=== PATIENT | female | born 1965 | race Caucasian/White ===

== ENCOUNTER → 2019-11-04 | Day surgery (SDC) | payer OTHER ==
[~2019-11-04] MED LIST: AMBIEN5 MG PO; BACITRACIN 50,000 UNIT VIAL ONE; BUPIVACAINE HCL 0.5% INJ 30 ML VIAL INJ ONE; CEFAZOLIN SOD 1 GM/NS 50ML 100 ML IV ONE; DEXAMETHASONE SOD PHOS INJ 4 MG/ML VIAL ONE; ETOMIDATE 2 MG/ML 10 ML INJ IV ONE; FENTANYL CITRATE/PF 100MCG/2 ML INJ ONE; HYDROCHLOROTHIA25 MG PO; KETOROLAC TROMETHAMINE 30 MG/ML VIAL ONE; LIDOCAINE HCL 2% LOCAL INJ 5 ML SDV VIAL INJ ONE; MIDAZOLAM HCL 2 MG/2 ML VIAL ONE; NEOSTIGMINE 1 MG/ML 10ML VIAL ONE; ONDANSETRON HCL INJ 2MG/ML 2ML 2 MG/ML VIAL ONE; PAXIL20 MG PO; POTASSIUM CHLO20 ME1 PO; PROPOFOL IV EMULSION 10 MG/ML 20 ML VIAL ONE; SEVOFLURANE INHAL SOLN 250 ML PEN BTL ONE
--- OUTSIDE RECORDS SUMMARY | 2019-11-04 06:59 | XMS REPORT | Summary of Care ---
Author Author [facility] Organization [facility] Address Unknown Phone Unavailable Care Team Providers Care Order Filler Name Role Phone PCP Unavailable Reason for Visit * Reason Comments Skin Check face and right shoulder Encounter Details Care Team Description Date Type Department Kiah Love MD [address] [facility] [address] [place] [address] [phone] Skin Check (face and right shoulder) 05/01/2019 Office Visit [facility] Dermatology [address] [facility] [place] [id number] Allergies No Known Allergiesdocumented as of this encounter (statuses as of 05/01/2019) Medications End Date Status Medication Sig Dispensed Refills Start Date Active hydrochlorothiazide TAKE 1 TABLET 2 (HYDRODIURIL) 25 MG BY MOUTH 9 tablet EVERY DAY Active Potassium Chloride ER 20 2 0 MEQ TBCR Active alprazolam (XANAX) 0.5 MG TAKE 1 TABLET 2 tablet BY MOUTH 9 EVERY MORNING Active Oxymetazoline HCl Apply 1 1 Tube 10 05/01/20 1 (RHOFADE) 1 % application 9 CREAIndications: Rosacea topically daily. documented as of this encounter (statuses as of 05/01/2019) Active Problems No known active problemsdocumented as of this encounter (statuses as of 05/01/2019) Social History Date Tobacco Use Types Packs/Day Years Used Never Smoker Smokeless Tobacco: Never Used Sex Assigned at Date Recorded Not on file Industry Job Start Date Occupation Not on file Not on file Not on file Travel End Travel History Travel Start No recent travel history available. documented as of this encounter Last Filed Vital Signs Not on filedocumented in this encounter Progress Notes * Kiah Love MD - 05/01/2019 7:45 AM CDT Chief Complaint Patient presents with Skin Check face and right shoulder 53 y.o. woman here for focused skin check for worrisome spots. C/o occasionally dry flaky red spot on right cheek that comes and goes. C/o flushing associated w ith stress. Denies pimple-like lesions on face. Has not tried any treatment for redness. Works in real estate. PMH: No skin cancer FMH: No skin cancer ROS: No fevers, chills, nausea/vomiting. No other changing skin lesions or rashe s. The patient's intake sheet was reviewed today, with information pertaining to carolann joseph medical history, family medical history, social history, allergies, and medic ations, reviewed. The intake sheets are by protocol scanned into the system afte r the clinic visit. Physical Exam Gen: NAD, well-developed well-nourished, A&O, pleasant Skin (head and face, neck, upper chest, right/left forearms/hands) significant f indings---- 1. Cheeks, nose, forehead, chin with erythematous telangiectatic patches 2. Scattered 2-4mm brown macules and papules on face, neck, and extremities with no worrisome features A/P 1. Rosacea, erythematotelangiectatic vs photodamage --Discussed options including no treatment, avoidance of triggers of flushing, l aser, cover-up with green tinted makeup to cancel out redness, and Rhofade --Rx Rhofade daily; if not covered by insurance, given instructions for cheap Rh ofade: --Add 1 bottle (1 ounce) of oxymetazoline HCl 0.05% nasal decongestant spray (ge neric Afrin) to a 3 ounce bottle of Cerave PM, then shake to mix. Apply to red a reas on face daily. 2. Benign nevi and solar lentigines, SKs --Sun protection discussed, including sun protective clothing and broad-spectrum SPF 30+ sunscreen use --Concerning signs of skin cancer discussed, including asymmetry, border irregul arity, color variegation, diameter >6mm, and evolution --Recommended Q1year skin checks, or sooner for any new or worrisome changes to existing lesions Kiah Love MD [facility] Department of Dermatology [facility] documented in this encounter Plan of Treatment Health Maintenance Due Date Last Done Comments COLON CANCER SCREENIN1963 COLONOSCOPY MAMMOGRAM ANNUAL 1963 TETANUS SHOT (ADULT) 1978 HEPATITIS C SCREENING 1981 HIV SCREENING 1981 CERVICAL CANCER SCREENING 1984 3 YEAR FOLLOW UP FLU VACCINE > 6 MONTHS 01/30/2019 documented as of this encounter Results Not on filedocumented in this encounter Visit Diagnoses Diagnosis Rosacea - Primary Multiple benign melanocytic nevi Lentigines Other dyschromia Keratosis seborrheica Other seborrheic keratosis documented in this encounter Insurance Type Payer Benefit Subscriber ID Effective Phone Address Plan / Dates Group PPO [facility] CHOICE/CHO xxxxxxxxx [address] [place] [address] PLUS/[employer] [facility] PPO - [facility] [id number] ([place]) [place], [place] [address] documented as of this encounter
--- OUTSIDE RECORDS SUMMARY | 2019-11-04 06:59 | XMS REPORT ---
Author Author [facility] Organization [facility] Address Unknown Phone Unavailable Care Team Providers Care Vegetable Grower Name Role Phone Unavailable Unavailable Problems This patient has no known problems. Allergies, Adverse Reactions, Alerts This patient has no known allergies or adverse reactions. Medications This patient has no known medications. Results Test Description Test Time Test Comments Text Results Atomic Results Result Comments SCR MAMM BILATERAL JOSH CAD DIGITAL 2019-09-16 16:02:45 - SCR MAMM BILATERAL JOSH CAD DIGITALBILATERAL DIGITAL SCREENING MAMMOGRAM 3D/2D WITH CAD: 09/16/2019CLINICAL: Asymptomatic. Digital breast tomosynthesis was performed in addition to routine CC and MLO views. Current mammographic images were evaluated by either a [employer] M-Vu or a [employer] Image[employer]horro Librecker CAD (computer aided detection system). Comparison is made to exams dated 07/11/2018 mammogram, 04/02 mammogram - [facility], and 08/15/2012 mammogram - [facility]. There are scattered fibroglandular tissues in both breasts. There are benign calcifications in both breasts. There also is a benign intramammary node in the right breast. No suspicious mass, architectural distortion, malignant type calcification, or lymph node abnormality detected. Breast architecture is stable compared to prior exams.IMPRESSION: BENIGNThere is no mammographic evidence of malignancy. Resume annual screening mammography in one year. Cassie luis/penrad:09/16/2019 16:02:45 Data Software Engineer: Kassie SCHNEIDER, [facility] sent: BIRADS 1-2 Normal Mammogram BI-RADS: 2 Benign
[2019-11-04 12:20] VITALS: BP 143/84
--- NOTE | 2019-11-04 19:26 | Operative Report ---
DATE OF PROCEDURE: 11/04/2019 SURGEON: Ros Oropeza DPM EMPLOYEE REPRESENTATIVE: None. PREOPERATIVE DIAGNOSIS: First MPJ hallux rigidus, stage 3. POSTOPERATIVE DIAGNOSIS: First MPJ hallux rigidus, stage 3. PROCEDURE: 1. First MPJ fusion with allograft first right. 2. Use of human allograft to improve fusion to prevent adhesions. 3. Application of posterior splint. MATERIALS: AlloWrap 2 x 2, reference #[id number], expiration November 14, 2019, lot #[id number]. BIO4 5 mL lot #[id number], expiration February 16, 2021. 2.0 screw from [employer], a plate, and locking screws. Please see implant sheet. COMPLICATIONS: None. CONDITION: Stable. ANESTHESIA: General anesthetic with a local block consisting of 20 mL of 0.5 Marcaine plain. PROCEDURE IN DETAIL: Under mild sedation, the patient was brought to the operating room, placed on the operating table in supine position. Following IV sedation, anesthesia was obtained with a general anesthetic. At this point, the left foot was scrubbed, prepped, and draped in the usual aseptic manner. It was then lowered to the table. Attention was then directed to the dorsal aspect of the right foot where after the pneumatic ankle tourniquet was inflated to 350 mmHg, the incision was made at the dorsal aspect of the right foot. The incision was deepened down to the level of the capsule. Linear capsulotomy was then performed. The capsule was then reflected off the 1st metatarsophalangeal joint. The 1st metatarsophalangeal joint was visualized. There was noted to be large amount of DJD, dorsal osteophytes right up to joint and osteophyte medially, laterally and adhesion of the sesamoids. All the adhesions were released. The osteophytes were removed. The joint was then prepared for fusion utilizing the reaming . All nonviable tissue was removed and the joint was burred down to clean viable tissue. The area was then fenestrated, noted to promote adhesion and 5 mL of viable graft was then inserted into the area. A lag screw was then used, a 2.0 screw. There was noted to be adequate compression clinically with the use of intraoperative fluoroscopy. At this point, then a plate with locking screws were also used to fuse the joint for hardware. There was noted to be adequate compression clinically with the use of intraoperative fluoroscopy. The area was then flushed with copious amount of normal sterile saline solution. The area was then closed, closing the deepest layer with 3-0 Vicryl. Human allograft was then inserted at the area of the nerve to prevent adhesions. Then, 4-0 Vicryl, then 4-0 nylon. The wound was dressed with Adaptic, 4x4s, Kerlix, Webril, posterior splint was secured with an Shay bandage. The tourniquet was deflated. There was noted to be hyperemic response to all the digits. The patient tolerated the procedure and anesthesia well without complications, was transported to recovery room with vital signs stable and vascular status intact. The patient will be discharged home when she meets criteria. She was given instructions to be nonweightbearing, to ice and elevate the foot while at rest, to give her Lovenox to prevent DVT. To take her postop medications as instructed, to call the office if any questions, concerns, or new problems arise. DAIJA Valdes/JOSUEL /[id number]
== END | disposition home or self-care (01) ==
LOC: OR 06:51
PROVIDERS: ATTEND Podiatrist Foot & Ankle Surgery
DX: M20.21 Hallux rigidus, right foot (principal); M19.071 Primary osteoarthritis, right ankle and foot; I10 Essential (primary) hypertension; F41.9 Anxiety disorder, unspecified; Z01.810 Encounter for preprocedural cardiovascular examination; Z01.812 Encounter for preprocedural laboratory examination; Z11.59 Encounter for screening for other viral diseases
CPT/HCPCS: 28750; 87635; 93005; C1713 ×5; J0690; J1100; J1885; J2001; J2250; J2405; J2704; J2710; J3010; Q4150

== ENCOUNTER → 2020-01-20 | Day surgery (SDC) | payer OTHER ==
[2020-01-15 12:41] LABS: ANION GAP 15.7 mmol/L (8-16); BLOOD UREA NITROGEN 6 mg/dL (7-26); BUN/CREATININE RATIO 11 (6-25); CALCIUM 9.2 mg/dL (8.4-10.2); CARBON DIOXIDE 32 mmol/L (22-29); CHLORIDE 88 mmol/L (98-107); CREATININE, SERUM 0.56 mg/dL (0.57-1.11); EST GLOMERULAR FILTRATION RATE > 60 ML/MIN (60-); GLUCOSE 90 mg/dL (74-118); SODIUM 133 mmol/L (136-145)
[2020-01-15 12:54] LABS: POTASSIUM 2.7 mmol/L (3.5-5.1)
[~2020-01-20] MED LIST changes: +ACETAMINOPHEN 1000 MG/100 ML IV ONE; -BACITRACIN 50,000 UNIT VIAL ONE; -ETOMIDATE 2 MG/ML 10 ML INJ IV ONE; -FENTANYL CITRATE/PF 100MCG/2 ML INJ ONE; +MEPERIDINE HCL INJ 25 MG/ML VIAL ONE; -MIDAZOLAM HCL 2 MG/2 ML VIAL ONE
[2020-01-20 10:35] VITALS: BP 129/71
--- NOTE | 2020-01-20 11:59 | Operative Report ---
DATE OF PROCEDURE: 01/20/2020 SURGEON: Ros Oropeza DPM PREOPERATIVE DIAGNOSIS: Hallux rigidus, left foot. POSTOPERATIVE DIAGNOSIS: Hallux rigidus, left foot. PROCEDURES: 1. First MPJ fusion. 2. The use of posterior splint. 3. The use of human allograft to promote healing and to prevent adhesions. HEMOSTASIS: Pneumatic thigh tourniquet at 350 mmHg. ESTIMATED BLOOD LOSS: Less than 10 mL. MATERIALS: A 3.0 x 32 headless screws, an MTP plate, a 3.0 x 14 lock screw, 3.0 x 18 lock screw, 3.0 x 20 x2 lock screw. AlloWrap 2 x 2, reference [id number] and BIO4 5 mL lot #[id number], expiration September 11, 2021. COMPLICATIONS: None. CONDITION: Stable. PROCEDURE IN DETAIL: Under mild sedation, the patient was brought to the operative room and placed on the operating table in supine position. Following IV sedation, anesthesia was obtained with a general anesthetic. At this point, the left foot scrubbed, prepped, and draped in the usual aseptic manner. The pneumatic thigh tourniquet was inflated to 350 mmHg and the leg was lowered to the table. Attention was directed to the dorsal aspect of the left foot, where a curvilinear incision was made overlying the left foot. The incision was deepened down to the level of the joint. The joint was then visualized. There was noted to be large amount of dorsal osteophytes laterally and medially utilizing an oscillating saw. All this was removed with a cup and cone reamer. The joint was then prepared for arthrodesis. It was reamed down to clean viable tissue. It was then fenestrated. Copious amount of irrigation with pressure agriculture intern and 3000 mL were then used. Once the joint was prepared for fusion, then 5 mL of BIO4 was inserted and noted to promote fusion and to help healing. A 3.0 x 30 mm headless screw was then used for compression screw. The wound noted to be adequate alignment clinically and with the use of intraoperative fluoroscopy and Pike MTP locking plate was then used with the corresponding screws. There was noted to be adequate alignment clinically with the use of intraoperative fluoroscopy. The area was then closed closing the deepest layer with 3-0 Vicryl and 4-0 Vicryl. The human allograft was then inserted, the AlloWrap in order to prevent adhesions to promote healing of the area and then 4-0 nylon. Clean dressing was applied consisting of Adaptic, Coban, 4x4s, Kerlix, and an Shay bandage. A Kerlix Webril posterior splint was applied and was secured utilizing an Shay bandage. The tourniquet was deflated. There was noted to be hyperemic response to all the digits. The patient tolerated the procedure and anesthesia well without complications and was transported to recovery room with vital signs stable and vascular status intact to both feet. The patient will be discharged home when she meets criteria. She was given instructions to be nonweightbearing, to ice and elevate the foot while at rest, to follow up with me in the office and to call the office if any questions, concerns, or new problems arise. DAIJA Valdes/PAMELA /[id number]
--- NOTE | 2020-01-20 16:14 | Diagnostic Imaging Report ---
OR Fluoroscopy: IMPRESSION: Fluoroscopy service provided in the OR. Interpretation not requested. Signed by: Aris Vasquez MD on 01/20/2020 4:11 PM
== END | disposition home or self-care (01) ==
LOC: OR 05:40
PROVIDERS: ATTEND Podiatrist Foot & Ankle Surgery
DX: M20.22 Hallux rigidus, left foot (principal); M19.072 Primary osteoarthritis, left ankle and foot; I10 Essential (primary) hypertension; F32.9 Major depressive disorder, single episode, unspecified; Z88.6 Allergy status to analgesic agent; Z01.810 Encounter for preprocedural cardiovascular examination; Z01.812 Encounter for preprocedural laboratory examination; Z11.59 Encounter for screening for other viral diseases
CPT/HCPCS: 28750; 36415; 76000; 80048; 93005; C1713 ×6; J0131; J0690; J1885; J2001; J2175; J2405; J2704; J2710; Q4150; U0002; J1100

== ENCOUNTER → 2020-08-31 | Day surgery (SDC) | payer BC ==
[2020-08-27 09:59] LABS: ANION GAP 17.4 mmol/L (8-16); BLOOD UREA NITROGEN 9 mg/dL (7-26); BUN/CREATININE RATIO 14 (6-25); CALCIUM 9.3 mg/dL (8.4-10.2); CARBON DIOXIDE 34 mmol/L (22-29); CHLORIDE 89 mmol/L (98-107); CREATININE, SERUM 0.65 mg/dL (0.57-1.11); EST GLOMERULAR FILTRATION RATE > 60 ML/MIN (60-); GLUCOSE 130 mg/dL (74-118); POTASSIUM 3.4 mmol/L (3.5-5.1); SODIUM 137 mmol/L (136-145)
[~2020-08-31] MED LIST changes: -ACETAMINOPHEN 1000 MG/100 ML IV ONE; +FENTANYL CITRATE/PF 100MCG/2 ML INJ ONE; +HYDROMORPHONE 1MG/1ML INJ ONE; -KETOROLAC TROMETHAMINE 30 MG/ML VIAL ONE; -MEPERIDINE HCL INJ 25 MG/ML VIAL ONE; +METOCLOPRAMIDE HCL 10 MG/2ML VIAL ONE; +MIDAZOLAM HCL 2 MG/2 ML VIAL ONE
[2020-08-31 11:25] VITALS: BP 119/67
== END | disposition home or self-care (01) ==
LOC: OR 06:54
PROVIDERS: ATTEND Podiatrist Foot & Ankle Surgery
DX: T84.213A Breakdown (mechanical) of internal fixation device of bones of foot and toes, initial encounter (principal); I10 Essential (primary) hypertension; T84.84XA Pain due to internal orthopedic prosthetic devices, implants and grafts, initial encounter; Y83.8 Other surgical procedures as the cause of abnormal reaction of the patient, or of later complication, without mention of misadventure at the time of the procedure; Z88.6 Allergy status to analgesic agent; Z01.810 Encounter for preprocedural cardiovascular examination; Z01.812 Encounter for preprocedural laboratory examination; Z20.822 Contact with and (suspected) exposure to COVID-19
CPT/HCPCS: 28750; 36415; 76000; 80048; 88300; 93005; C1713 ×4; J0690; J1100; J1170; J2001; J2250; J2405; J2704; J2710; J2765; J3010; U0002

== ENCOUNTER → 2021-06-07 | Day surgery (SDC) | payer BC ==
[2021-06-06 09:24] LABS: ANION GAP 15.8 mmol/L (8-16); CALCIUM 9.6 mg/dL (8.4-10.2); CREATININE, SERUM 0.71 mg/dL (0.57-1.11); POTASSIUM 4.8 mmol/L (3.5-5.1)
[~2021-06-07] MED LIST changes: -CEFAZOLIN SOD 1 GM/NS 50ML 100 ML IV ONE; +DEXAMETHASONE SOD PHOS INJ 4 MG/ML SDV ONE; -DEXAMETHASONE SOD PHOS INJ 4 MG/ML VIAL ONE; -HYDROMORPHONE 1MG/1ML INJ ONE; -METOCLOPRAMIDE HCL 10 MG/2ML VIAL ONE; +METOPROLOL; +POVIDONE IODINE 0.05% 0.05 % ML PO ONE; +SODIUM CHLORIDE 0.9% 50ML 100 ML ONE
[2021-06-07 13:35] VITALS: BP 139/88
== END | disposition home or self-care (01) ==
LOC: OR 09:56
PROVIDERS: ATTEND Podiatrist Foot & Ankle Surgery
DX: M20.5X2 Other deformities of toe(s) (acquired), left foot (principal); M20.22 Hallux rigidus, left foot; I10 Essential (primary) hypertension; Z88.6 Allergy status to analgesic agent; Z01.810 Encounter for preprocedural cardiovascular examination; Z01.812 Encounter for preprocedural laboratory examination; Z20.822 Contact with and (suspected) exposure to COVID-19; Z79.899 Other long term (current) drug therapy
CPT/HCPCS: 28310; 36415; 76000; 80048; 93005; C1713; J0690; J1100; J2001; J2250; J2405; J2704; J2710; J3010; Q4150; U0002